=== PATIENT | male | born 1955 | race Caucasian/White ===

== ENCOUNTER 2016-07-13 21:34 | Emergency (ER) | payer OTHER ==
[~2016-07-13] VITALS: Ht 180.3 cm; Wt 79.4 kg
[~2016-07-13 21:34] MED LIST: BACLOFEN10 MG ORAL; BACTRIM DS TAB1 EAC1 ORAL; CIALIS5 MG PO; COLACE100 MG ORAL; CYMBALTA30 MG ORAL; DIPHENHYDRAMINE25 M1 ORAL; DITROPAN XL15 MG ORAL; FERROUS SULFAT325 MG ORAL; FUROSEMIDE40 MG ORAL; GABAPENTIN300 MG ORAL; HYDROMORPHONE HC2 M1 PO; LORAZEPAM2 MG/1 M3 IM; MILK OF MA400 MG/51 ORAL; MIRALAX17 G2 ORAL; MULTIVITAMINS1 EA13 ORAL; NORCO 10/3251 EA ORAL; OMEPRAZOLE20 M2 ORAL; SPIRONOLACTONE25 MG ORAL; TIZANIDINE HCL4 MG ORAL; TYLENOL EXTRA500 MG ORAL; VENTOLIN HFA18 GM INH; VITAMIN B-1100 MG ORAL; VITAMIN C500 M1 ORAL; VITAMIN E400 UNI6 PO; ZINC SULFATE220 M1 ORAL
[2016-07-13 21:35] VITALS: BP 99/62
[2016-07-13] MEDS ORDERED: LORazepam Inj 2mg/ml 1ml IM ONE (22:00)
[2016-07-13 23:23] VITALS: BP 105/62
--- NOTE | 2016-07-14 00:15 | Emergency Room Report ---
History of Present Illness General Chief Complaint: General Complaint Source: Patient, Medical Record, EMS Present Illness HPI 60 YO M sent from SNF for ?AMS and low BP. Patient endorses 2-3 MJ joints to me. Denies other drugs, ETOH. Feels well otherwise. Denies fever/chills, chest pain, SOB, abd pain, headache, urinary complaints. Allergies: Coded Allergies: No Known Allergies (Unverified , 04/23/14) Patient History Past Medical History: see triage record, old chart reviewed Social History: Reports: drug use, smoking, Denies: alcohol use Immunizations: UTD Reviewed Nursing Documentation: PMH: Agreed, PSxH: Agreed Nursing Documentation-PMH Hx Hypertension: Yes Hx Diabetes: Yes Review of Systems All Other Systems: negative except mentioned in HPI Physical Exam Vital Signs Date Time Temp Pulse Resp B/P Pulse Ox O2 Delivery O2 Flow Rate FiO2 07/13/16 21:26 98.8 89 15 99/62 99 Room Air Sp02 EP Interpretation: reviewed, normal General Appearance: normal inspection, well appearing, no apparent distress, alert, GCS 15, non-toxic Head: normocephalic, atraumatic Eyes: bilateral eye EOMI, bilateral eye PERRL ENT: normal ENT inspection, hearing grossly normal, normal voice Neck: normal inspection, full range of motion, supple, no bony tend Respiratory: normal inspection, lungs clear, normal breath sounds, no respiratory distress, no retraction, no wheezing Cardiovascular #1: regular rate, rhythm, no edema Gastrointestinal: normal inspection, normal bowel sounds, non tender, soft, no guarding, no hernia, other - colostomy bag in place with brown stool. Genitourinary: no CVA tenderness Neurologic: normal inspection, alert, oriented x3, responsive, social sciences instructor III-XII nml as tested, motor strength/tone normal, speech normal Psychiatric: normal inspection, judgement/insight normal, mood/affect normal Skin: normal inspection, normal color, no rash Medical Decision Making Diagnostic Impression: Primary Impression: Marijuana abuse ER Course 60 YO M with ?AMS with endorsed MJ abuse. VSS. Afebrile. Has not been hypotensive here. Asked for and received coffee here. Was a little agitated with tremors but settled down after IM ativan Otherwise, alert and oriented. I and other staff know patient well for multipel visits here for suprapubic catheter dysfunction. HE is at baseline per my evaluation. DC back to SNF Last Vital Signs Date Time Temp Pulse Resp B/P Pulse Ox O2 Delivery O2 Flow Rate FiO2 07/13/16 23:23 98.8 86 16 105/62 99 Room Air Status: improved Disposition: XFER SNF Condition: Improved Patient Instructions: Cannabis Use Disorder Additional Instructions: SNF - Patient is alert and oriented. Admitted to 3 joints of marijuana. He also asked for and had coffee in the ED. - Blood Pressure has been normal. - Patient safe to return to facility JADIEL BRADSHAW M.D. Jul 14, 2016 00:15
[2016-07-14 02:22] VITALS: BP 105/62
== END 2016-07-14 02:22 ==
LOC: EDBD 21:34 → EMR 22:10
DX: F12.10 Cannabis abuse, uncomplicated (principal); R41.82 Altered mental status, unspecified; R03.1 Nonspecific low blood-pressure reading; Z87.891 Personal history of nicotine dependence; I10 Essential (primary) hypertension; E11.9 Type 2 diabetes mellitus without complications
CPT/HCPCS: 96372; 99283